=== PATIENT | female | born 1945 | race Caucasian/White ===

== ENCOUNTER 2018-04-24 22:28 | Inpatient (IN) | payer MEDICARE ==
[2018-04-24 23:08] LABS: #Basophils 0.1 thou/uL (0.0-0.2); #Eosinphils 0.2 thou/uL (0.0-0.7); #Lymphocytes 2.2 thou/uL (1.20-3.40); #Monocytes 0.9 thou/uL (0.11-0.59); #Neutrophils 9.9 thou/uL (1.40-6.50); %Basophils 0.7 % (0.0-1.0); %Eosinophils 1.9 % (0.0-10.0); %Lymphocytes 16.7 % (21.0-51.0); %Monocytes 6.7 % (0.0-10.0); %Neutrophils 74.1 % (42.0-75.0); Hemoglobin 13.3 g/dL (12.0-16.0); Mean Corpuscular HGB CONC 34.2 g/dL (32.0-36.0); Mean Corpuscular Hemoglobin 32.1 pg (27.0-31.0); Mean Corpuscular Volume 94.1 fL (78.0-98.0); Mean Platelet Volume 7.8 fL (7.4-10.4); Platelet Count 234 thou/uL (130-400); RBC Distribution Width 12.2 % (11.5-14.5); Red Blood Cell (RBC) Count 4.13 mill/uL (4.20-5.40); White Blood Cell (WBC) Count 13.3 thou/uL (4.8-10.8)
--- NOTE | 2018-04-24 23:14 | RAD ---
CHEST ONE VIEW: 04/24/18 HISTORY: Nausea, vomiting, syncope. COMPARISON: None. FINDINGS: Lungs without focal air space consolidation, pneumothorax or effusion. The cardiac silhouette and med iastinal contours are within normal limits. IMPRESSION: No acute intrathoracic abnormality. POS: [facility]
[2018-04-24 23:30] LABS: ALT (SGPT) 16 U/L (8-55); AST (SGOT) 25 U/L (5-34); Albumin 3.9 g/dL (3.4-4.8); Alkaline Phosphatase 65 U/L (40-150); Anion Gap 16 mmol/L (10-20); BUN (Urea Nitrogen) 18 mg/dL (9.8-20.1); Bilirubin, Total 0.5 mg/dL (0.2-1.2); CK (CPK) 124 U/L (29-168); Calc. Creatinine Clearance 0 mL/min (70-130); Calcium 9.2 mg/dL (7.8-10.44); Carbon Dioxide 19 mmol/L (23-31); Chloride 105 mmol/L (98-107); Estimated GFR-MDRD 42; Glucose 138 mg/dL (83-110); Lipase 25 U/L (8-78); Potassium 3.4 mmol/L (3.5-5.1); Protein, Total 6.9 g/dL (6.0-8.3); Sodium 137 mmol/L (136-145)
[2018-04-24 23:34] LABS: CKMB 2.2 ng/mL (0-6.6); Troponin I Less than 0.010 ng/mL (< 0.028)
--- NOTE | 2018-04-24 23:37 | CT ---
CT OF THE BRAIN WITHOUT CONTRAST 04/24/18 HISTORY: Syncopal episode. Nausea and vomiting. COMPARISON: None. FINDINGS: No acute territorial infarct or hemorrhage. No midline shift or mass effect. Ventricular size and ext ra-axial CSF spaces are normal. There is extensive fluid filling of the bilateral ethmoids and bilateral frontal sinuses. There is mu cosal thickening of the mastoids bilaterally with chronic osteitis. IMPRESSION: 1. No acute intracranial abnormality. 2. Diffuse extensive sinusitis. POS: [facility]
[2018-04-24] MEDS ORDERED: Dexamethasone 4 mg/ml Vial SLOW IVP SCH (23:45)
[2018-04-25] MEDS ORDERED: cefTRIAXone\\ROCEPHIN 1 GM VIAL ONE (00:07)
[2018-04-25 02:35] LABS: Troponin I Less than 0.010 ng/mL (< 0.028)
[2018-04-25 03:15] VITALS: BMI 33.7
[2018-04-25] MEDS ORDERED: Ondansetron HCl/PF 4 MG/2 ML Vial IVP PRN (05:53)
[2018-04-25] MEDS ORDERED: HYDROcodone/Acetaminophen 5/325 mg Tablet PO PRN ×2 (05:53)
[2018-04-25] MEDS ORDERED: Ondansetron ODT 4 MG TAB SL PRN (05:53)
[2018-04-25] MEDS ORDERED: Acetaminophen 325 MG TAB PO PRN (05:53)
[2018-04-25 06:10] LABS: Troponin I Less than 0.010 ng/mL (< 0.028)
[2018-04-25] MEDS ORDERED: Bisacodyl 5 MG TAB PO PRN (07:31)
[2018-04-25] MEDS ORDERED: Senokot 8.6 MG TAB PO PRN (07:31)
--- NOTE | 2018-04-25 07:32 | CT ---
CT ANGIOGRAM CHEST WITH CONTRAST: HISTORY: Evaluate for pulmonary embolism. COMPARISON: Chest radiograph same day. FINDINGS: CT angiogram chest performed after the intravenous administration of contrast. Three-D rendering pro vided. No proximal segmental or pulmonary arterial filling defect. Pulmonary trunk size is normal. The aor tic size is nonaneurysmal. No pericardial effusion. No significant adenopathy. Small sliding hiatal hernia. No focal airspace consolidation, pneumothorax, or effusion. Mild atele ctasis in the lung bases. Sternum, manubrium, and xiphoid process are all intact. No thoracic spine compression fracture. Ribs are unremarkable. IMPRESSION: No acute intrathoracic abnormality. No pulmonary embolism. POS: [facility]
[2018-04-25] MEDS ORDERED: Labetalol HCl 100 MG/20 ML VIAL SLOW IVP PRN (07:33)
[2018-04-25] MEDS ORDERED: hydrALAZINE 20 MG/ML VIAL SLOW IVP PRN (07:33)
[2018-04-25 07:46] LABS: #Lymphocytes 0.8 thou/uL (1.20-3.40); #Monocytes 0.2 thou/uL (0.11-0.59); #Neutrophils 12.6 thou/uL (1.40-6.50); %Basophils 0.2 % (0.0-1.0); %Eosinophils 0.2 % (0.0-10.0); %Lymphocytes 6.2 % (21.0-51.0); %Monocytes 1.4 % (0.0-10.0); Hemoglobin 13.3 g/dL (12.0-16.0); Mean Corpuscular HGB CONC 32.9 g/dL (32.0-36.0); Mean Corpuscular Hemoglobin 31.4 pg (27.0-31.0); Mean Corpuscular Volume 95.3 fL (78.0-98.0); Mean Platelet Volume 8.6 fL (7.4-10.4); Platelet Count 239 thou/uL (130-400); RBC Distribution Width 12.2 % (11.5-14.5); Red Blood Cell (RBC) Count 4.23 mill/uL (4.20-5.40); White Blood Cell (WBC) Count 13.7 thou/uL (4.8-10.8)
--- NOTE | 2018-04-25 07:50 | PDOC.EVN ---
Event Note - Event Note Event Note: [id number] h&p
--- NOTE | 2018-04-25 08:07 | HP ---
CHIEF COMPLAINT: Lightheadedness, weakness and a syncopal episode while at work. HISTORY OF PRESENT ILLNESS: This is a 72-year-old female with minimal past medical history other than asthma who initially presented after a syncopal episode while at work. The patient states that she had 1 similar episode after working outside before. Patient felt lightheaded and weak prior to this episode and also felt somewhat confused. She had a syncopal episode when going in to tell her boss that she was quitting. This occurred at approximately 2:00 p.m. in the afternoon. REVIEW OF SYSTEMS: As per HPI. CONSTITUTIONAL: No fevers, no chills. No weight loss or gain. HEENT: No headache, no dizziness, no lightheadedness currently post-syncopal episode. CARDIOVASCULAR: Denies any chest pain, chest pressure, left-sided arm numbness or tingling. GASTROINTESTINAL: Denies any nausea, vomiting, abdominal pain, diarrhea or constipation. GENITOURINARY: Denies any dysuria or changes in urinary frequency, quality, quantity or odor. MUSCULOSKELETAL: Denies any myalgias or arthralgias. The remainder of the review of systems otherwise negative. PAST MEDICAL HISTORY: 1. Asthma, which was adult in onset in her 30s. 2. Status post tonsillectomy. FAMILY HISTORY: Significant for diabetes in her mother. HOME MEDICATIONS: Please see the EMR for full details. Her list currently only includes montelukast sodium 110 mg p.o. at bedtime and fluticasone propionate 2 inhalations daily. ALLERGIES: ASPIRIN, IBUPROFEN, NSAIDs in general. 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 She denies any alcohol, tobacco or illicit drug use. The patient lives independently. CODE STATUS: She wishes to be FULL CODE at this point in time. PHYSICAL EXAMINATION: VITAL SIGNS: Temperature 97.6, pulse of 87, respirations 18, satting 92% on room air, blood pressure 136/88. GENERAL: The patient is awake, alert, conversant, in no acute distress, lying in hospital bed. HEENT: Normocephalic, atraumatic. Moist mucous membranes. Equal ocular motions are intact. CARDIOVASCULAR: S1, S2. No murmurs, rubs or gallops. Pulses 2+ bilateral upper extremities, no pitting pedal edema. No carotid bruits. RESPIRATORY: Reasonable air movement. No wheezes, rales or rhonchi. No conversational dyspnea. Grossly clear to auscultation bilaterally. ABDOMEN: Positive bowel sounds, soft, nontender to palpation. MUSCULOSKELETAL: Moving all 4 extremities independently. LABORATORY AND IMAGIN04/24/2018 - Chest x-ray. Impression: "No acute intrathoracic abnormality". 04/24/2018 - Brain CT. Impression "No acute intracranial abnormality. Diffuse extensive sinusitis". 04/24/2018 - CTA of the chest. Impression, "No acute intrathoracic abnormality. No pulmonary embolism." ASSESSMENT AND PLAN: A 72-year-old female presenting with a chief complaint of syncope. 1. Syncope by history could be related to volume depletion. We will check orthostatic vital signs. The patient herself endorsed being concern for the possibility of a transient ischemic attack which I suspect is slightly less likely. CT of the brain is initially negative. We will check an MRI. CTA has also ruled out for a PE as the causative etiology for this patient. Patient states she is worried about the cost of hospitalization and any additional evaluation costs. 2. Asthma, stable. 3. Elevated white count with, leukocytosis. Recheck after IV hydration. 4. Elevated creatinine of 1.26, repeat after hydration. 5. Diet: Regular. 6. Activity: As tolerated. 7. DVT prophylaxis with Lovenox. MTDD
[2018-04-25 08:11] LABS: Anion Gap 17 mmol/L (10-20); BUN (Urea Nitrogen) 15 mg/dL (9.8-20.1); Calc. Creatinine Clearance 67 mL/min (70-130); Calcium 9.2 mg/dL (7.8-10.44); Carbon Dioxide 18 mmol/L (23-31); Chloride 106 mmol/L (98-107); Estimated GFR-MDRD 53; Glucose 136 mg/dL (83-110); Potassium 4.2 mmol/L (3.5-5.1); Sodium 137 mmol/L (136-145)
[2018-04-25] MEDS ORDERED: Aspirin 81 mg Enteric Coated Tablet PO SCH (09:00)
[2018-04-25] MEDS ORDERED: Docusate 100 MG CAP PO SCH (09:00)
[2018-04-25] MEDS ORDERED: Enoxaparin Sodium 30 MG/0.3 ML SYRINGE SC SCH (09:00)
[2018-04-25] MEDS ORDERED: Fluticasone Propionate HFA 110 MCG AER INH SCH ×2 (09:00)
[2018-04-25] MEDS ORDERED: Regadenoson 0.4 MG/5 ML SYRINGE ONE (10:42)
[2018-04-25 11:41] VITALS: BP 137/89; TEMP 97.7
--- NOTE | 2018-04-25 12:23 | NM ---
CARDIAC SPECT: CLINICAL HISTORY: 72-year-old female with chest pain and asthma. TECHNIQUE: A myocardial perfusion scan was performed using the single isotope one day protocol with technetium-9 9m sestamibi. 11 mCi were injected intravenously for the rest exam followed by 33 mCi for the stress exam. Pharmacologic stress with Lexiscan was monitored and interpreted by Dr. Mejia. FINDINGS: Homogeneous tracer distribution is seen in the myocardial segments on stress and rest images without fixed or reversible defects. VISUAL ANALYSIS OF LVEF: Greater than 60%. WALL MOTION EXAM: Normal. IMPRESSION: Normal myocardial perfusion scan. POS: [facility]
--- NOTE | 2018-04-25 13:58 | DIS ---
DATE OF ADMISSION: 04/25/2018 DATE OF DISCHARGE: 04/25/2018 DISCHARGE DIAGNOSES: 1. Syncopal episode secondary to dehydration. 2. Asthma, chronic and stable. 3. Leukocytosis. 4. Acute kidney injury, mild, secondary to dehydration, resolving. 5. Hypokalemia, mild, resolving. CONSULTATIONS: None. PERTINENT LABORATORY DATA AND X-RAY FINDINGS: Potassium ranged between 3.4-4.2, creatinine ranged be tween 1.02-1.26, estimated GFR ranged between 42-53, troponin negative x3. BNP less than 10. TSH 5. 9. CBC showed white blood cell count ranging between 13.3-13.7 and hemoglobin 13. Portable chest x- ray dated 04/24/2018 showed no acute cardiopulmonary process. CT of the brain without contrast dated 04/24/2018 showed no acute intracranial process. Diffuse sinusitis noted. CT angiogram of the ches t dated 04/24/2018 showed no acute cardiopulmonary process. No evidence for pulmonary embolus. Card iolite stress test dated 04/25/2018 showed no evidence for reversible or fixed ischemia with calculat ed ejection fraction of 60%. HOSPITAL COURSE: The patient was observed after presenting status post syncopal episode. The patien t was noted with mild acute kidney injury and dehydration, likely underlying etiology for presentatio n. Orthostatic vital signs remained stable and telemetry monitoring showed no evidence of acute arrh ythmia or dysrhythmia. Radiologic workup including neuro imaging was unremarkable. The patient unde rwent Cardiolite stress testing showing no evidence of reversible or fixed ischemia with calculated e jection fraction of 60%. The patient received IV fluids, general supportive measures and remained cl inically stable. I have examined the patient at the time of discharge and discussed followup instruc tions at which point the patient verbalized understanding and agreement. The patient overall clinica lly stable and ready for discharge on 04/25/2018. DISCHARGE MEDICATIONS: 1. Flonase 2 sprays in each naris, 2 inhalations daily. 2. Singulair 10 mg p.o. at bedtime. FOLLOWUP: The patient to follow up with her primary care provider, Dr. Adri Rosario within 7 days o f discharge. CONDITION ON DISCHARGE: Stable. ACTIVITY: Ad magaly. DIET: Regular. CODE STATUS: FULL. DISPOSITION: Home 04/25/2018.
[2018-04-25] MEDS ORDERED: Mometasone 100 MCG HFA INHALER INH SCH (18:30)
[2018-04-25] MEDS ORDERED: Montelukast Sodium 10 mg Tablet PO SCH (21:00)
--- NOTE | 2018-04-26 10:54 | EKG ---
Test Reason : Blood Pressure : / mmHG Vent. Rate : 079 BPM Atrial Rate : 079 BPM P-R Int : 160 ms QRS Dur : 086 ms QT Int : 422 ms P-R-T Axes : 057 -28 053 degrees QTc Int : 483 ms Normal sinus rhythm Normal ECG Confirmed by CHIKA HUOSER, JOSELITO ([id number]), editor trade journal RODOLFO CHEUNG ([id number]) on 04/26/2018 10:53:14 AM Referred By: Confirmed By:JOSELITO FARR MD
--- NOTE | 2018-04-30 09:10 | STRESS ---
Acquisition Time: 2018-04-25 10:25:15 Total Exercise Time: 00:01:00 Test Indications: CHEST PAIN Medications: Protocol: LEXISCAN Max HR: 104 BPM 70% of Pred: 147 BPM Max BP: 120/070 mmHG Max Work Load: 1.0 METS RESTING ECG: NORMAL SINUS RHYTHM AT 90 BPM SYMPTOMS: DYSPNEA NORMAL BP RESPONSE ECTOPY: NONE ECG STRESS: NO SIGNIFICANT CHANGES INTERPRETATION: AWAIT NUCLEAR IMAGES FOR DEFINITIVE DIAGNOSIS Confirmed by PRICILLA DENSON ([id number]), photograph editor CARL PRITCHARD ([id number]) on 04/30/2018 9:10:34 AM Referred By: MD Ian GUTIERREZ Confirmed By:PRICILLA DENSON
== END 2018-04-25 14:21 | disposition home or self-care (01) | DRG 684 ==
LOC: ERS 22:28 → 2SE 04-25 01:15
PROVIDERS: ADMIT Internal Medicine; ATTEND Internal Medicine
DX: N17.9 Acute kidney failure, unspecified (principal); E86.0 Dehydration; J45.909 Unspecified asthma, uncomplicated; E87.6 Hypokalemia; Z88.6 Allergy status to analgesic agent; Z79.899 Other long term (current) drug therapy
CPT/HCPCS: 36415; 70450; 71045; 71275; 78452; 80048; 80053; 82553; 83690; 83880; 84443; 84484; 85025; 85379; 93005; 93017; 94760; 96361; 96365; 96375; A9500; J0696; J1100; J1650; J2785

== ENCOUNTER 2022-12-11 09:39 | Day surgery (SDC) | payer MEDICARE ==
[2022-12-06 14:07] VITALS: BMI 32.8
[~2022-12-11 09:39] MED LIST: EPINEPHrine 0.3 MG in Ophthalmic Irrigation Solution 500 ML IRR SCH; Midazolam HCl 2 mg/2 ml Vial ONE; PROPOFOL 20 ML ONE; fentaNYL 50 mcg/mL 1 mL Vial ONE
[2022-12-11] MEDS ORDERED: Cyclopentolate 1% Opth Drop 2 ML BOT ONE (10:01)
[2022-12-11] MEDS ORDERED: Phenylephrine 2.5% Ophth Soln 5 ML BOT ONE (10:01)
[2022-12-11] MEDS ORDERED: CEFAZOLIN 1 GM VIAL ONE (11:26)
[2022-12-11] MEDS ORDERED: Indocyanine Green 25 MG/10 ML VIAL ONE (11:26)
[2022-12-11] MEDS ORDERED: Lidocaine 4% PF 5 ML AMP ONE (11:26)
[2022-12-11] MEDS ORDERED: Maxitrol 0.1% Opth Oint 3.5 GM TUBE ONE (11:26)
[2022-12-11] MEDS ORDERED: Bupivacaine 0.75% 10 ML VIAL ONE (11:26)
[2022-12-11] MEDS ORDERED: Triamcinolone 40 MG/ML VIAL ONE (11:26)
[2022-12-11] MEDS ORDERED: Lidocaine 1% PF 5 ML VIAL ONE (11:26)
== END 2022-12-11 12:24 | disposition home or self-care (01) ==
LOC: SDC 09:39
PROVIDERS: ATTEND Ophthalmology Retina Specialist
PROC: 08T53ZZ Resection of Left Vitreous, Percutaneous Approach (ICD-10-PCS; principal; 2022-12-11)
PROC: 08NF3ZZ Release Left Retina, Percutaneous Approach (ICD-10-PCS; 2022-12-11)
DX: H35.372 Puckering of macula, left eye (principal); Z79.899 Other long term (current) drug therapy; Z88.2 Allergy status to sulfonamides; Z88.5 Allergy status to narcotic agent; Z88.6 Allergy status to analgesic agent; Z88.8 Allergy status to other drugs, medicaments and biological substances
CPT/HCPCS: J0171; J0690; J2250; J2704; J3010; J3301; J3490